=== PATIENT | female | born 1960 | race Caucasian/White ===

== ENCOUNTER 2022-09-05 13:00 | Outpatient (CLI) | payer OTHER, SELFPAY ==
--- NOTE | ~2022-09-05 | CT_ITS ---
EXAMINATION: CT foot RT wo con DATE: 09/05/2022 13:15 INDICATION: Right metatarsalgia. TECHNIQUE: Computed tomography (CT) of the right foot was performed without intravenous contrast. Aut omated exposure control and iterative reconstruction technique were employed. The dose-length product was 158.78 mGy-cm. COMPARISON: None FINDINGS: Bone alignment is normal. No fracture. There is mild osteoarthritis of talonavicular joint and calcaneocuboid joint. There is an enthesophyte at plantar aspect of calcaneal tuberosity. IMPRESSION: 1. Mild polyarticular osteoarthritis. Reviewed, dictated and finalized at location A. [employer]IST
== END 2022-09-05 13:01 ==
LOC: MICIMG 13:01
PROVIDERS: PCP Internal Medicine; Visit Provider Podiatrist Foot & Ankle Surgery
DX: M77.41 Metatarsalgia, right foot (principal); M19.071 Primary osteoarthritis, right ankle and foot
CPT/HCPCS: 73700

== ENCOUNTER 2023-04-21 13:10 | Outpatient (CLI) | payer OTHER, SELFPAY ==
--- NOTE | ~2023-04-21 | XR_ITS ---
EXAMINATION: XR md joint inject/asp w image DATE: 04/21/2023 14:04 INDICATION: Osteoarthritis of right wrist. TECHNIQUE: A time-out was performed to verify the patient's name, date of , and procedure to b e performed. The procedure including the risks, benefits, and alternatives was discussed with the pat david. Risks discussed included bleeding and infection. The patient understood the risks and agreed to proceed. The skin overlying the midcarpal joint compartment was prepped and draped in usual sterile fashion. Anesthetic was administered with 1% lidocaine subcutaneously. A 23 G needle was advanced under fluoroscopic guidance into the joint. Subsequently, injectate consisting of 2 mL 1% lidocaine, 1 mL 80 mg/mL Depo-Medrol and 1 mL Omnipaque 240 was instilled. The needle was removed and the entr y site was cleaned and dressed. There were no immediate complications. Fluoroscopy exposure time was 0.1 minutes. The total number of images was 3. FINDINGS: Real-time fluoroscopy demonstrates the needle in the right metacarpal joint compartment. Yoel sawant's pain prior to procedure:0/10. IMPRESSION: 1. Right midcarpal joint compartment injection of local anesthetic and steroid. Reviewed, dictated and finalized at location A.
== END 2023-04-21 13:11 | disposition home or self-care (01) ==
LOC: ANHIMG 13:12
PROVIDERS: PCP Internal Medicine; Visit Provider Orthopaedic Surgery
DX: M19.031 Primary osteoarthritis, right wrist (principal)
CPT/HCPCS: 20605; 77002; J1040

== ENCOUNTER 2023-06-06 18:04 | Emergency (ER) | payer OTHER, SELFPAY ==
--- NOTE | ~2023-06-06 | XR_ITS ---
EXAMINATION: XR forearm RT 2V DATE: 06/06/2023 18:26 INDICATION: Right forearm pain. TECHNIQUE: 2 views of right forearm were obtained. COMPARISON: None. FINDINGS: Bone alignment is normal. No fracture. There is mild osteoarthritis of triscaphe joint and first carpometacarpal joint. No elbow joint effusion. IMPRESSION: 1. Mild polyarticular osteoarthritis. Reviewed, dictated and finalized at location E. [employer] ARCHITECT
[2023-06-06 18:11] VITALS: BP 147/73; PULSE 85; RESP 16; TEMP 36.6; O2SAT 99
--- NOTE | 2023-06-06 18:45 | ED.UPPEXIN ---
HPI - Extremity Injury (Upper) General Chief Complaint: Extremity Injury, Upper Stated Complaint: Right Wrist Pain Source: patient and RN notes reviewed History of Present Illness HPI narrative: 62 yo F presents to urgent care with complaints of right wrist pain. Pt states 2 weeks ago, she was picking up her dog when she heard a felt a pop in her right radial wrist/distal FA area. Pt states the pain only lasted a couple days and she was fine. Pt states last night she rolled over and pulled the blanket over her when she felt the sharp pain again. Pt states the pain is much worse this time and has radiated up her arm. Pt admits to getting a steroid injection in this wrist 1 month ago for arthritis. Pt denies any numbness or tingling. Related Data Home Medications Medication Instructions Recorded Confirmed atorvastatin 10 mg tablet (Lipitor) 10 mg PO DAILY 02/26/21 06/06/23 Allergies Allergy/AdvReac Type Severity Reaction Status Date / Time No Known Allergies Allergy Verified 06/06/23 18:21 Review of Systems Review of Systems: CONSTITUTIONAL: Denies fever, chills, or sweats. EYES: Denies visual changes, redness, or discharge. ENT: Denies otalgia and sore throat CARDIOVASCULAR: Denies chest pain, palpitations, or edema. RESPIRATORY: Denies cough or dyspnea. GASTROINTESTINAL: Denies abdominal pain, nausea, vomiting, or diarrhea. GENITOURINARY: Denies dysuria or hematuria. SKIN: Denies rash or itching. MUSCULOSKELETAL: Right wrist pain NEUROLOGIC: Denies headache, numbness, or weakness. Pertinent positives per HPI. [facility] Past Medical History Medical History Lyme disease Pacemaker Surgical History Surgical History H/O laparoscopy Ovarian Wedge resection History of permanent cardiac pacemaker placement Family History Family History Mother Family history of malignant neoplasm of breast in first degree relative Family history of malignant neoplasm of ovary Grandparent Family history of type 2 diabetes mellitus Other Family history of lupus erythematosus Family history of malignant neoplasm of breast Social History Social History (Updated 05/08/23 @ 12:55 by Eben Lui CMA) Smoking status: Current every day smoker Tobacco type: cigarettes Alcohol intake: current Substance use: never Substance use type: does not use Lack of Transportation: No Lack of Food: Never True Current Housing: I Have Housing Concerned About Future Housing: No Difficulty Paying Gas/Electric Bills: No Difficulty Paying for Meds: No Currently Unemployed: No Difficulty w/ Childcare or Family Care: No Occupation/Education: occupation Gender identity (if verbalized by the patient): Female Sexual Orientation (if Verbalized by the Patient): Straight or Heterosexual Comments At the time of my signature, I reviewed and agree with the nursing past medical, surgical, social, and family history. There is no relevant family history pertinent to the patient complaint. Exam Narrative: GENERAL: This is a well-nourished, well-developed patient, in no apparent distress. HEAD: normocephalic, atraumatic. EYES: Sclera clear/white. Vision is grossly intact. EARS: External ears normal, auditory canals clear and without drainage. Hearing grossly intact. NOSE: External nose normal with no obvious nasal discharge, nares without redness, no rhinorrhea. THROAT: Mucous membranes moist, posterior pharynx clear. NECK: Neck supple, non-tender without lymphadenopathy, masses or thyromegaly. CARDIOVASCULAR: Regular rate and rhythm without murmurs, gallops, or rubs. RESPIRATORY: Clear to auscultation. Breath sounds equal bilaterally. No wheezes, rales, or rhonchi. GASTROINTESTINAL: Abdomen soft, non-tender, nondistended. Bowel sounds are active. No
== END 2023-06-06 18:55 | disposition home or self-care (01) ==
PROVIDERS: Emergency Provider Nurse Practitioner Family; PCP Internal Medicine
DX: S63.501A Unspecified sprain of right wrist, initial encounter (principal); S66.911A Strain of unspecified muscle, fascia and tendon at wrist and hand level, right hand, initial encounter; X50.0XXA Overexertion from strenuous movement or load, initial encounter; M19.031 Primary osteoarthritis, right wrist; F17.210 Nicotine dependence, cigarettes, uncomplicated; Z95.0 Presence of cardiac pacemaker
CPT/HCPCS: 73090; 99213; G0463